=== PATIENT | male | born 1940 | race Caucasian/White ===

== ENCOUNTER → 2019-04-29 | Outpatient (CLI) | payer OTHER, SELFPAY | PROVIDERS: Family Provider Family Medicine; Visit Provider Radiology Radiation Oncology | DX: Z08 Encounter for follow-up examination after completed treatment for malignant neoplasm (principal); Z85.72 Personal history of non-Hodgkin lymphomas; Z92.3 Personal history of irradiation | CPT/HCPCS: 99213 ==

== ENCOUNTER 2020-07-06 14:32 | Outpatient (CLI) | payer OTHER, SELFPAY ==
--- NOTE | 2020-07-06 14:42 | CT_ITS ---
WS: [id number] CT HEAD NONCONTRAST HISTORY: DIPLOPIA TECHNIQUE: Contiguous axial imaging performed through the brain in 2.5 mm imaging. Bone and soft tiss ue windows. All CT scans at [facility] use at least one of these dose optimization techniq ues: automated exposure control; mA and/or kV adjustment per patient size (includes targeted exams wh ere dose is matched to clinical indication); or iterative reconstruction. DLP: 925.91 mGycm COMPARISON: 12/03/2017 No acute intracranial hemorrhage, midline shift or mass effect. Mild atrophy and mild chronic microvascular ischemic disease. Ventricles: Normal size with no hydrocephalus. Heavy calcification within the intracranial carotid arteries. Most significant in the cavernous sinus es and supraclinoid carotid and greatest on the LEFT. Paranasal sinuses: As visualized are clear. Mastoid air cells: Well pneumatized. Calvarium and scalp: Skull is intact with no soft tissue edema or swelling. CT/CT head wo con* [id number] IMPRESSION: 1. No acute intracranial hemorrhage or edema. Similar appearance to the brain as compared to 12/03/2017. 2. Mild atrophy. 3. If symptoms do not resolve consider follow-up MRI evaluation with contrast
== END 2020-07-06 14:33 | disposition home or self-care (01) ==
PROVIDERS: PCP Family Medicine; Visit Provider Family Medicine
DX: H53.2 Diplopia (principal); G31.9 Degenerative disease of nervous system, unspecified
CPT/HCPCS: 70450